=== PATIENT | female | born 1995 | race Asian ===

== ENCOUNTER 2023-07-07 23:30 | Emergency (ER) | payer BC ==
[~2023-07-07] VITALS: Ht 157.5 cm; Wt 62.0 kg
[2023-07-07 23:40] VITALS: TEMP 98.5; O2SAT 98
[2023-07-08] MEDS ORDERED: ONDANSETRON HCL 4MG/2ML INJ IV ONE (00:15)
[2023-07-08] MEDS ORDERED: DEXAMETHASONE 4MG/ML 1ML VIAL IV ONE (00:15)
[2023-07-08] MEDS ORDERED: SODIUM CHLORIDE 0.9% 1,000 ML IV ONE (00:15)
[2023-07-08 00:34] LABS: BASOPHILS % 0.2 % (0.0-2.0); DIFFERENTIAL COMMENT 0; EOSINOPHILS % 1.3 % (0.0-5.0); HEMATOCRIT. 40.7 % (36.0-48.0); LYMPHOCYTES % 14.4 % (20.0-50.0); MEAN CORPUSCULAR HEMOGLOBIN 24.6 pg (28.0-32.0); MEAN CORPUSCULAR HGB CONC 31.8 g/dL (31.0-37.0); MEAN CORPUSCULAR VOLUME 77.4 fL (81.0-99.0); MEAN PLATELET VOLUME 8.5 fl (7.4-10.4); MONOCYTES % 6.2 % (2.0-8.0); NEUTROPHILS % 77.9 % (40.0-76.0); PLATELET 313 x1000/uL (130-400); RED BLOOD CELL COUNT 5.26 mill/uL (4.2-5.4); RED CELL DISTRIBUTION WIDTH 14.5 % (11.6-14.6); WHITE BLOOD COUNT 11.2 x1000/uL (4.5-11.0)
[2023-07-08 00:47] LABS: ALANINE AMINOTRANSFERASE 41 IU/L (10-49); ALBUMIN 4.8 g/dL (3.2-4.8); ASPARTATE AMINOTRANSFERASE 31 IU/L (<34); BILIRUBIN TOTAL 0.8 mg/dL (0.1-1.0); CALCIUM 9.8 mg/dL (8.7-10.4); CARBON DIOXIDE 24 mEq/L (21-32); CHLORIDE 102 mEq/L (98-107); CREATININE 0.6 mg/dL (0.6-1.0); GLUCOSE 123 mg/dL (70-105); POTASSIUM 3.1 mEq/L (3.5-5.1); PROTEIN TOTAL 8.2 g/dL (6.0-8.3); SODIUM 137 mEq/L (136-145); UREA NITROGEN BLOOD 8 mg/dL (9-23)
[2023-07-08 00:52] LABS: HCG SCREEN POSITIVE
[2023-07-08] MEDS ORDERED: PYRI25TA4 MT (03:29)
[2023-07-08] MEDS ORDERED: DOXY25TA61 MT (03:31)
[2023-07-08 04:02] VITALS: BP 113/71; PULSE 82; RESP 16
== END 2023-07-08 04:04 | disposition home or self-care (01) ==
LOC: ER 23:30
DX: O26.891 Other specified pregnancy related conditions, first trimester (principal); E86.0 Dehydration; Z3A.01 Less than 8 weeks gestation of pregnancy
CPT/HCPCS: 99284; 80053; 84703; 85025; 36415; 93005; 96361; 96374; 96375; J1100; J2405; J7030; Z7610 ×4; 81025

== ENCOUNTER 2024-05-13 06:07 | Emergency (ER) | payer BC, MEDICAID ==
[~2024-05-13] VITALS: Ht 160 cm; Wt 62.0 kg
[~2024-05-13 06:07] MED LIST: DOXY25TA61 MT; PYRI25TA4 MT
[2024-05-13 06:09] VITALS: O2SAT 99
[2024-05-13 06:15] VITALS: BP 133/92; PULSE 95; RESP 16; TEMP 97.7; O2SAT 98
[2024-05-13] MEDS: KETOROLAC 30MG/ML VIAL IM ONE (07:05)
[2024-05-13 07:28] LABS: BASOPHILS % 0.7 % (0.0-2.0); DIFFERENTIAL COMMENT 0; EOSINOPHILS % 11.4 % (0.0-5.0); HEMATOCRIT. 36.4 % (36.0-48.0); HEMOGLOBIN. 11.4 g/dL (12.0-16.0); LYMPHOCYTES % 24.8 % (20.0-50.0); MEAN CORPUSCULAR HEMOGLOBIN 22.9 pg (28.0-32.0); MEAN CORPUSCULAR HGB CONC 31.2 g/dL (31.0-37.0); MEAN CORPUSCULAR VOLUME 73.5 fL (81.0-99.0); MEAN PLATELET VOLUME 8.1 fl (7.4-10.4); MONOCYTES % 7.9 % (2.0-8.0); NEUTROPHILS % 55.2 % (40.0-76.0); PLATELET 264 x1000/uL (130-400); RED BLOOD CELL COUNT 4.96 mill/uL (4.2-5.4); RED CELL DISTRIBUTION WIDTH 16.7 % (11.6-14.6); WHITE BLOOD COUNT 7.3 x1000/uL (4.5-11.0)
[2024-05-13 07:41] LABS: CHLORIDE 107 mEq/L (98-107); SODIUM 141 mEq/L (136-145)
[2024-05-13 07:42] LABS: CALCIUM 8.9 mg/dL (8.7-10.4); CARBON DIOXIDE 26 mEq/L (21-32)
[2024-05-13 07:47] LABS: CREATININE 0.6 mg/dL (0.6-1.0); GLUCOSE 102 mg/dL (70-105); UREA NITROGEN BLOOD 11 mg/dL (9-23)
[2024-05-13 07:49] LABS: ALANINE AMINOTRANSFERASE 14 IU/L (10-49); ALBUMIN 4.3 g/dL (3.2-4.8); ASPARTATE AMINOTRANSFERASE 16 IU/L (<34); BILIRUBIN TOTAL 0.2 mg/dL (0.1-1.0); PROTEIN TOTAL 7.3 g/dL (6.0-8.3)
[2024-05-13 07:52] LABS: BILIRUBIN DIRECT < 0.1 mg/dL (<=3.0)
[2024-05-13 08:05] LABS: HCG SCREEN NEGATIVE
== END 2024-05-13 07:41 | disposition left against medical advice (07) ==
LOC: ER 06:07
DX: R10.9 Unspecified abdominal pain (principal); Z53.21 Procedure and treatment not carried out due to patient leaving prior to being seen by health care provider
CPT/HCPCS: 80076; 80048; 84703; 83690; 85025; 36415; J1885; Z7610; 96372; 99283